=== PATIENT | male | born 1975 | race African-American/Black ===

== ENCOUNTER 2018-02-09 19:27 | Emergency (ER) | payer SELFPAY ==
[2018-02-09 19:43] VITALS: BP 128/85
--- NOTE | 2018-02-09 20:21 | RAD ---
INDICATION: Left hand and wrist pain after falling during a basketball game. COMPARISON: None. TECHNIQUE: 2 views of the left hand and 3 views of the left wrist were obtained. FINDINGS: There is a nondisplaced comminuted fracture involving the distal left radius. A fracture line along the ulnar aspect of the distal left radius extends to the articulating surface of the radius. There is a mild degree of shortening of the fracture. The remaining visualized bones are intact and appropriately aligned. Mild degenerative changes include joint space loss of the interphalangeal joints. IMPRESSION: Comminuted distal left radius fracture.
--- NOTE | 2018-02-09 20:42 | UC ---
Hand/Wrist HPI - HPI Summary HPI Summary: pt states 2 days ago was playing basketball -f ell on outstretched left wrist. Pt with progressive pain and swelling and came for eval. Pt is RHD. no previous injury. Pt was wearing a splint with some comfort. Pt took Motrin 2 hours [facility]. + ice no other injuries pt's RHD - History Of Current Complaint Chief Complaint: UCUpperExtremity Stated Complaint: LEFT ARM INJURY Time Seen by Provider: 02/09/18 20:12 Hx Obtained From: Patient Onset/Duration: Sudden Onset Severity Initially: Moderate Severity Currently: Moderate Pain Intensity: 8 Pain Scale Used: 0-10 Numeric Character Of Pain: Sharp Aggravating Factor(s): Movement, Lifting, Extension Alleviating Factor(s): Rest Associated Signs And Symptoms: Positive: Negative - Allergies/Home Medications Allergies/Adverse Reactions: Allergies Allergy/AdvReac Type Severity Reaction Status Date / Time No Known Allergies Allergy Verified 02/09/18 19:33 Home Medications: Home Medications Ibuprofen TAB* [Motrin TAB* 800 MG] 800 mg PO Q4H PRN 02/09/18 [History Confirmed 02/09/18] PMH/Surg Hx/FS Hx/Imm Hx Previously Healthy: Yes - Surgical History Surgical History: Yes Surgery Procedure, Year, and Place: Left inguinal hernia as child - Social History Occupation: Employed Full-time Lives: With Family Alcohol Use: None Substance Use Type: None Smoking Status (MU): Heavy Every Day Tobacco Smoker Type: Cigarettes Review of Systems Constitutional: Negative Skin: Negative Motor: Other - left wrist All Other Systems Reviewed And Are Negative: Yes Physical Exam Triage Information Reviewed: Yes Appearance: Well-Appearing, No Pain Distress, Well-Nourished Vital Signs: Initial Vital Signs Temp 99.2 F 02/09/18 19:35 Pulse 92 02/09/18 19:35 Resp 20 02/09/18 19:35 BP 128/85 02/09/18 19:35 Pulse Ox 99 02/09/18 19:35 Eyes: Positive: Conjunctiva Clear ENT: Positive: Hearing grossly normal Respiratory: Positive: No respiratory distress, No accessory muscle use Cardiovascular: Positive: Other: - 2+ radial, 2+ ulnar Musculoskeletal: Positive: Other: - + flex/ext elbow + pronate/supinate pain with movement of wrist + pain radial aspect, dorsum no snuffbox pain Neurological: Positive: Other: - + thumb up with pain in distal radius + finger spread, cross Psychological Exam: Normal Psychological: Positive: Normal Response To Family Skin: Positive: Other - + edema dorsum of right wrist Procedures - Splinting Hand-Made Type: orthoglass Splint: volar Pre-Proc Neuro Vasc Exam: normal Post-Proc Neuro Vasc Exam: normal Diagnostics - Radiology No standard instances Xray Interpretation: Positive (See Comments) - fx, intraarticular, comminuted Radiology Interpretation Completed By: Radiologist Hand/Wrist Course/Dx - Course Course Of Treatment: pt with pain in left wrist s/p fall. Pt with + comminuted , intra-articular fx on xray. splint place. sling. elevate. motrn/apap. ice. Ortho referral. work note - Differential Dx/Diagnosis Provider Diagnoses: comminuted, intra-articular fx left distal radius Discharge - Sign-Out/Discharge Documenting (check all that apply): Discharge - Discharge Plan Condition: Stable Disposition: HOME Patient Education Materials: Wrist Fracture in Adults (ED) Forms: *Gen. Provider Communication Referrals: Francis Cesar MD [Medical Doctor] - No Primary Care Phys,NOPCP [Primary Care Provider] - Additional Instructions: - wear sling for comfort and support - okay to apply ice (wrapped in a towel) 20 minutes at a time, 2-3 times a day - elevate your arm to help with swelling - alternate ibuprofen (advil, motrin) 600mg and tylenol every 3hours for pain. Take with food. do NOT Take for more than 4-5 days - Call the orthopedic office tomorrow to schedule a follow-up appointment. Okay to request to be seen in the [place] office - Billing Disposition and Condition Condition: STABLE Disposition: HOME
== END 2018-02-09 21:00 | disposition home or self-care (01) ==
LOC: EDBD → UCCORT 19:27
DX: S52.572A Other intraarticular fracture of lower end of left radius, initial encounter for closed fracture (principal); W19.XXXA Unspecified fall, initial encounter; Y93.67 Activity, basketball; Y92.9 Unspecified place or not applicable; F17.210 Nicotine dependence, cigarettes, uncomplicated
CPT/HCPCS: 99202; G0463